=== PATIENT | female | born 1975 | race Caucasian/White ===

== ENCOUNTER 2021-08-12 11:09 | Emergency (ER) | payer SELFPAY ==
[~2021-08-12] VITALS: Ht 165.1 cm; Wt 64.0 kg
[2021-08-12 11:10] VITALS: BP 115/97
== END 2021-08-12 12:01 | disposition left against medical advice (07) ==
LOC: ER 11:09
DX: R42 Dizziness and giddiness (principal); G40.909 Epilepsy, unspecified, not intractable, without status epilepticus; I25.2 Old myocardial infarction; G43.909 Migraine, unspecified, not intractable, without status migrainosus; Z88.0 Allergy status to penicillin
CPT/HCPCS: 99283

== ENCOUNTER 2021-08-12 11:53 | Emergency (ER) | payer SELFPAY ==
[~2021-08-12] VITALS: Ht 162.6 cm; Wt 54.0 kg
[2021-08-12 12:08] VITALS: BP 120/70
== END 2021-08-12 16:10 | disposition home or self-care (01) ==
LOC: ER 11:53
DX: R42 Dizziness and giddiness (principal); R44.1 Visual hallucinations; G40.909 Epilepsy, unspecified, not intractable, without status epilepticus; G43.909 Migraine, unspecified, not intractable, without status migrainosus; I25.2 Old myocardial infarction; Z98.890 Other specified postprocedural states; Z88.0 Allergy status to penicillin
CPT/HCPCS: 99281

== ENCOUNTER 2021-08-12 16:16 | Emergency (ER) | payer SELFPAY ==
[~2021-08-12] VITALS: Ht 162.6 cm; Wt 54.0 kg
[2021-08-12] MEDS ORDERED: LORAZEPAM 2MG/ML CPJ IM STA (17:38)
[2021-08-12] MEDS ORDERED: OLANZAPINE 10 MG/VIAL IM STA (17:38)
[2021-08-12] MEDS ORDERED: SODIUM CHLORIDE 0.9% 1,000 ML IV ONE (17:45)
[2021-08-12 17:58] LABS: CLARITY URINE CLEAR (CLEAR); COLOR URINE YELLOW (YELLOW); KETONES URINE NEGATIVE (NEGATIVE); LEUKOCYTE ESTERASE URINE 1+ (NEGATIVE); NITRITE URINE NEGATIVE (NEGATIVE); OCCULT BLOOD URINE 3+ (NEGATIVE); PROTEIN URINE NEGATIVE (NEGATIVE); SPECIFIC GRAVITY URINE 1.014 (1.005-1.030); UROBILINOGEN URINE 0.2 E.U./dL (0.2-1.0)
[2021-08-12 18:11] LABS: *AMPHETAMINES SCREEN URINE NEGATIVE (NEGATIVE); *BARBITURATES SCREEN URINE NEGATIVE (NEGATIVE); *BENZODIAZEPINES SCREEN URINE NEGATIVE (NEGATIVE); *COCAINE SCREEN URINE NEGATIVE (NEGATIVE); CANNABINOID URINE SCREEN NEGATIVE (NEGATIVE); METHADONE URINE SCREEN NEGATIVE (NEGATIVE); OPIATES URINE SCREEN NEGATIVE (NEGATIVE); PHENCYCLIDINE URINE SCREEN NEGATIVE (NEGATIVE)
[2021-08-12 19:00] LABS: BASOPHILS % 0.7 % (0.0-2.0); EOSINOPHILS % 0.4 % (0.0-5.0); HEMATOCRIT. 34.7 % (36.0-48.0); HEMOGLOBIN. 11.7 g/dL (12.0-16.0); LYMPHOCYTES % 22.5 % (20.0-50.0); MEAN CORPUSCULAR HEMOGLOBIN 28.1 pg (28.0-32.0); MEAN CORPUSCULAR VOLUME 83.2 fL (81.0-99.0); MEAN PLATELET VOLUME 8.3 fl (7.4-10.4); MONOCYTES % 10.6 % (2.0-8.0); NEUTROPHILS % 65.8 % (40.0-76.0); PLATELET 159 x1000/uL (130-400); RED BLOOD CELL COUNT 4.17 mill/uL (4.2-5.4); RED CELL DISTRIBUTION WIDTH 14.5 % (11.6-14.6)
[2021-08-12 19:07] LABS: CHLORIDE 109 mEq/L (98-107)
[2021-08-12 19:12] LABS: HCG SCREEN NEGATIVE
[2021-08-12 19:16] LABS: ETHANOL BLOOD < 10 mg/dL
[2021-08-13] MEDS: ARIPIPRAZOLE 5MG TABLET PO SCH (12:23)
[2021-08-14 08:00] VITALS: BP 106/69
[2021-08-14] MEDS: ARIPIPRAZOLE 5MG TABLET PO SCH (09:36)
== END 2021-08-14 10:52 | disposition home or self-care (01) ==
LOC: ER 16:16
DX: F23 Brief psychotic disorder (principal); F31.9 Bipolar disorder, unspecified; G40.909 Epilepsy, unspecified, not intractable, without status epilepticus; G43.909 Migraine, unspecified, not intractable, without status migrainosus; I25.2 Old myocardial infarction; Z88.0 Allergy status to penicillin; Z75.1 Person awaiting admission to adequate facility elsewhere; Z20.822 Contact with and (suspected) exposure to COVID-19
CPT/HCPCS: 36415; 80053; 80305; 80307; 80320; 80329; 81003; 81025; 84703; 85025; 96360; 96361; 96372; 99285; C9803; J2060; J3490; J7030; U0003; U0005; G0480